=== PATIENT | male | born 1945 | race Caucasian/White ===

== ENCOUNTER 2019-02-10 07:19 | Emergency (ER) | payer MEDICARE, SELFPAY ==
--- NOTE | 2019-02-10 07:29 | DI.RAD.S_ITS ---
PROCEDURE: XR CHEST 2V INDICATIONS: Cant take a deep breath TECHNIQUE: 2 views of the chest were acquired. COMPARISON: None. FINDINGS: Surgical changes and devices: None. Lungs and pleura: Lungs are clear. No pleural effusions or pneumothorax. Mediastinum: Mediastinal contours are normal. Heart size is normal. Bones and chest wall: No suspicious bony abnormalities. Soft tissues appear unremarkable. IMPRESSION: No acute process. Dictated by: Delfina Monsivais M.D. on 02/10/2019 at 8:23 Approved by: Delfina Monsivais M.D. on 02/10/2019 at 8:23
[2019-02-10 07:30] VITALS: BP 147/69; PULSE 62; RESP 20; TEMP 36.9; O2SAT 97; BMI 43.9
--- NOTE | 2019-02-10 07:37 | ED_ITS ---
HPI - SOB/Dyspnea General Chief Complaint: Shortness of Breath/Dyspnea Stated Complaint: Pneumonia episode Time Seen by Provider: 02/10/19 07:35 Source: patient Mode of arrival: ambulatory Limitations: no limitations History of Present Illness Patient is a 73-year-old male here for evaluation of bilateral chest burning. He states that the symptoms woke him up from sleep at approximately 0100 hours in the morning. He states they have been constant symptoms since then however they have improved somewhat. He states it hurts when he takes a big deep breath. Not painful when he touches it or moves. Has not tried anything for the symptoms prior to arrival. Patient states that he had an episode of pneumonia approximately 1 year ago was treated with azithromycin and felt very similar to this. He does have lower extremity swelling but he states this is secondary to his diet. He states that he had a stress test at an outside faci lity recently but does not know the results of it. He has seen a electric truck operator to ?wanted to do another test? he does not know with this was. No fevers. No productive cough. Related Data Allergies Allergy/AdvReac Type Severity Reaction Status Date / Time No Known Drug Allergies Allergy Verified 02/10/19 08:46 Review of Systems Constitutional Denies fever(s) and Denies headache(s) ENT Ears, Nose, Mouth, and Throat: Denies headache(s) Cardiovascular Reports chest pain and Reports leg edema Respiratory Reports pain on inspiration Gastrointestinal Gastrointestinal: Denies abdominal pain, Denies nausea and Denies vomiting Musculoskeletal Denies myalgias and Denies arthralgias Integumentary/Breasts Denies rash Neurologic Denies behavioral changes and Denies headache(s) Psychiatric Denies behavioral changes Hematologic/Lymphatic Denies easy bleeding and Denies easy bruising [facility] Medical History Patient denies medical problems (Acute) Social History Smoking Status: Former smoker Social History Smoking Status: Former smoker Exam Initial Vital Signs Initial Vital Signs: Vital Signs Temperature 98.5 F 02/10/19 07:30 Pulse Rate 62 02/10/19 07:30 Respiratory Rate 20 02/10/19 07:30 Blood Pressure 147/69 H 02/10/19 07:30 Pulse Oximetry 97 02/10/19 07:30 Const General: cooperative, comfortable, well developed, well groomed and No acute distress Chest Chest: normal inspection of the chest, No crepitus and No tenderness Resp Effort & Inspection: normal respiratory effort Auscultation: clear to auscultation bilaterally Cardio Rate: regular rate Rhythm: regular rhythm Pulses: radial pulses present GI Inspection: non-distended Palpation: soft Skin Lesions: no lesions Rashes: no rashes Neuro General: alert, awake and oriented x3 Cognition: normal cognition Speech: speech normal Extrem General: edema Psych Appearance: grossly normal and well kempt Scores GCS Cristi coma scale eye opening: Spontaneous Cristi coma scale verbal response: Orientated [place] coma scale motor response: Obey commands [place] coma scale total score: 15 HEART Score Heart Score history: Slightly Suspicious Heart Score EKG: Non-Specific repolarization disturbance Heart Score Age: > or = 65 years old Heart Score risk factors: No known risk factors Heart Score troponin: < or = to normal limit Heart Score Total: 3 Course Orders Ordered: ED Orders 02/10/19 07:29 CXR [XR chest 2V] Stat EKG-12 Lead Stat 02/10/19 07:50 B Type Natriuretic Peptide Stat Complete Blood Count AUTO DIFF Stat Comprehensive Metabolic Panel Stat Lipase Stat Partial Thromboplastin Time Stat Prothrombin Time INR Stat Troponin I Stat Vital Signs - 8 hr 02/10/19 07:30 Temperature 98.5 F Pulse Rate 62 Respiratory Rate 20 Blood Pressure 147/69 H Pulse Oximetry 97 MDM - SOB/Dyspnea Lab Data Attestation: I reviewed the patient's lab results. Result diagrams: 02/10/19 07:50 02/10/19 07:50 Lab Results 02/10/19 02/10/19 02/10/19 Range/Units 07:50 07:50 07:50 WBC 9.9 (4.5-11.0) X10^3/uL RBC 4.06 L (4.5-5.9) X10^6/uL Hgb 11.2 L (13.5-17.5) g/dL Hct 33.6 L (41-53) % MCV 82.7 (80-100) fL MCH 27.7 (26-34) PG MCHC 33.4 (30-36) % RDW 14.7 (11.6-14.8) % Plt Count 261 (150-400) X10^3/uL Neut % (Auto) 73.8 (50-75) % Lymph % (Auto) 16.6 L (25-40) % [place] % (Auto) 8.1 (3-14) % Eos % (Auto) 0.6 L (2-4) % Baso % (Auto) 0.9 (0-2) % Neut # (Auto) 7300 H (5035-0439) /uL Lymph # (Auto) 1600 (7556-1865) /uL [place] # (Auto) 800 (0-900) /uL Eos # (Auto) 100 (0-450) /uL Baso # (Auto) 100 (0-100) /uL PT 12.1 (10.1-12.7) SECONDS INR 1.1 (0.9-1.3) APTT 53 H (26.4-36.2) SECONDS Sodium 137 (137-145) mmol/L Potassium 4.1 (3.4-5.1) mmol/L Chloride 102 (98-107) mmol/L Carbon Dioxide 25 (22-32) mmol/L BUN 20 (9-20) mg/dL Creatinine 0.90 (0.66-1.25) mg/dL Estimated GFR > 60.0 (>60) mL/min BUN/Creatinine Ratio 22.2 H (6-22) Glucose 131 H (80-110) mg/dL Calcium 9.1 (8.4-10.2) mg/dL Total Bilirubin 0.7 (0.2-1.3) mg/dL AST 18 (17-59) IU/L ALT 12 L (21-72) IU/L Alkaline Phosphatase 90 (38-126) U/L Troponin I < 0.012 (0.01-0.034) ng/mL B-Natriuretic Peptide < 100 (<100) Total Protein 8.1 (6.3-8.2) g/dL Albumin 3.9 (3.5-5.0) g/dL Globulin 4.2 H (1.7-4.1) g/dL Albumin/Globulin Ratio 0.9 L (1.0-2.8) Lipase 68 (23-300) U/L Imaging Data Chest x-ray: Radiologist's impression: [address] [address] XRay Report Signed Patient: Catarino Fisher#: [id number] : 3Acct:[id number] Age/Sex: 73 / MDate of Service: 02/10/19 Loc: ED Accession Number: [id number] Procedure: XR chest 2V Ordering Provider: Hair Fairchild D.O. PROCEDURE: XR CHEST 2V INDICATIONS: Cant take a deep breath TECHNIQUE: 2 views of the chest were acquired. COMPARISON: None. FINDINGS: Surgical changes and devices: None. Lungs and pleura: Lungs are clear. No pleural effusions or pneumothorax. Mediastinum: Mediastinal contours are normal. Heart size is normal. Bones and chest wall: No suspicious bony abnormalities. Soft tissues appear unremarkable. IMPRESSION: No acute process. Dictated by: Delfina Monsivais M.D. on 02/10/2019 at 8:23 Approved by: Delfina Monsivais M.D. on 02/10/2019 at 8:23 ECG Data Attestation: I personally reviewed and interpreted this ECG as follows: Prior ECG tracings: not available for review Interpretation: Sinus bradycardia Ventricular rate of 53 Normal axis Normal QRS Normal QTC [address]-elevation in lead 1 no other reciprocal changes MDM Narrative Medical decision making narrative: Patient troponin is negative greater than 6 hours after the onset of symptoms. EKG is relatively unremarkable. Chest x-ray is unremarkable. He is not hypoxic. Not tachypneic. Not tachycardic. Low suspicion for PE. He does have a uteri all at home. Will have him take his a lbuterol on a regular basis throughout today. Will have him follow up with his electric truck operator. He was given return precautions and follow-up instructions. He expressed understanding and agreement plan. Discharge Plan Departure Patient Disposition: Home Clinical Impression: Atypical chest pain Instructions: DI for Atypical Chest Pain Activity Restrictions/Additional Instructions: I do recommend that you contact your primary care doctor today for follow-up. Also recommend that you contact your electric truck operator. Continue all of your medications as directed. Return to the emergency department for any new or worsening symptoms
[2019-02-10 08:05] LABS: Add Manual Diff / Slide Review NO; Basophils Absolute Auto 100 /uL (0-100); Basophils Percent Auto 0.9 % (0-2); Eosinophils Absolute Auto 100 /uL (0-450); Eosinophils Percent Auto 0.6 % (2-4); Hematocrit 33.6 % (41-53); Hemoglobin 11.2 g/dL (13.5-17.5); Lymphocytes Absolute Auto 1600 /uL (1100-4500); Lymphocytes Percent Auto 16.6 % (25-40); Mean Corpuscular HGB Conc 33.4 % (30-36); Mean Corpuscular Hemoglobin 27.7 PG (26-34); Mean Corpuscular Volume 82.7 fL (80-100); Monocytes Absolute Auto 800 /uL (0-900); Monocytes Percent Auto 8.1 % (3-14); Neutrophils Absolute Auto 7300 /uL (1500-7000); Neutrophils Percent Auto 73.8 % (50-75); Platelet Count 261 X10^3/uL (150-400); Red Blood Cell Count 4.06 X10^6/uL (4.5-5.9); Red Cell Distribution Width 14.7 % (11.6-14.8); White Blood Cell Count 9.9 X10^3/uL (4.5-11.0)
[2019-02-10 08:10] LABS: INR 1.1 (0.9-1.3); Prothrombin Time 12.1 SECONDS (10.1-12.7)
[2019-02-10 08:13] LABS: PTT Partial Thromboplastin Tim 53 SECONDS (26.4-36.2)
[2019-02-10 08:15] LABS: Alanine Aminotransferase 12 IU/L (21-72); Albumin 3.9 g/dL (3.5-5.0); Albumin Globulin Ratio 0.9 (1.0-2.8); Alkaline Phosphatase 90 U/L (38-126); Aspartate Aminotransferase 18 IU/L (17-59); BUN Creatinine Ratio 22.2 (6-22); Bilirubin Total 0.7 mg/dL (0.2-1.3); Blood Urea Nitrogen 20 mg/dL (9-20); Calcium 9.1 mg/dL (8.4-10.2); Carbon Dioxide 25 mmol/L (22-32); Chloride 102 mmol/L (98-107); Estimated Glomerular Filt Rate > 60.0 mL/min (>60); Globulin 4.2 g/dL (1.7-4.1); Glucose 131 mg/dL (80-110); HEMOLYSIS < 15 (0-50); Lipase 68 U/L (23-300); Potassium 4.1 mmol/L (3.4-5.1); Sodium 137 mmol/L (137-145); Total Protein 8.1 g/dL (6.3-8.2)
[2019-02-10 08:27] LABS: Troponin I < 0.012 ng/mL (0.01-0.034)
[2019-02-10 08:35] LABS: B Type Natriuretic Peptide < 100 (<100)
[2019-02-10 09:00] VITALS: BP 131/62; PULSE 54; RESP 16; O2SAT 97
== END 2019-02-10 09:00 | disposition home or self-care (01) ==
PROVIDERS: Emergency Provider Emergency Medicine
DX: R07.89 Other chest pain (principal); R00.1 Bradycardia, unspecified
CPT/HCPCS: 36591; 71046; 80053; 83690; 83880; 84484; 85025; 85610; 85730; 93005; 99282; 99285

== ENCOUNTER 2019-06-30 11:40 | Emergency (ER) | payer MEDICARE, SELFPAY ==
[2019-06-30] VITALS (7 sets, daily range): BP systolic 115–124; BP diastolic 43–78; PULSE 56–118; RESP 16–24; TEMP 36.7; O2SAT 93–100
--- NOTE | 2019-06-30 11:57 | DI.RAD.S_ITS ---
PROCEDURE: XR CHEST 2V INDICATIONS: short of breath, cough TECHNIQUE: 2 views of the chest were acquired. COMPARISON: [facility], CR, XR CHEST 2V, 02/10/2019, 7:55. [facility], CR, XR CHEST 1 VIEW, 10/17/2018, 5:56. FINDINGS: Surgical changes and devices: Sternotomy and CABG. Lungs and pleura: There is moderate left pleural effusion with left basilar consolidation or atelectasis. There is a small right effusion with probable small hiatal normal thorax. No pneumothorax. Mediastinum: Mediastinal contours are normal. Heart size is normal. Bones and chest wall: No suspicious bony abnormalities. Soft tissues appear unremarkable. IMPRESSION: 1. There is a moderate left pleural effusion and small right effusion. There is probable small right hydropneumothorax. There is no evidence for developing tension. The result was discussed with Catie Oneal in ER. Dictated by: Damion Copeland M.D. on 06/30/2019 at 13:09 Approved by: Damion Copeland M.D. on 06/30/2019 at 13:16
--- NOTE | 2019-06-30 12:02 | ED_ITS ---
HPI - SOB/Dyspnea <DAVID Strange - Last Filed: 06/30/19 18:18> General Chief Complaint: Shortness of Breath/Dyspnea Stated Complaint: had a chest xray,was told to go to ER Time Seen by Provider: 06/30/19 11:48 Source: patient Mode of arrival: Ambulatory Limitations: no limitations History of Present Illness HPI Narrative: The patient is a 74-year-old male former smoker who presents with a chief complaint of by Dr. cross at my chest x-ray and told me to go across the street to the emergency department.He states this occurred at the [facility] amount burning, and he was supposed to go to [facility] however he does not like [facility] so he came to this facility. He is not exactly sure why he is here, but states that he went to his doctor's office for a cough that has been going on since March. He has several months postop from a CABG x3 up at [facility]. He currently denies any chest pain. He states he has had a productive cough for months. He states he did have fluid on the lungs after his surgery and needed to have it drained. He denies any fevers, nausea vomiting or diarrhea. He states that his cough has been consistent since March , when he left the hospital. Related Data Home Medications Medication Instructions Recorded Confirmed amiodarone 200 mg PO DAILY 06/30/19 06/30/19 amlodipine 10 mg PO DAILY 06/30/19 06/30/19 aspirin 81 mg PO DAILY 06/30/19 06/30/19 atorvastatin 1 tab PO QPM 06/30/19 06/30/19 furosemide 20 mg PO QPM 06/30/19 06/30/19 metoprolol tartrate 25 mg PO BID 06/30/19 06/30/19 Allergies Allergy/AdvReac Type Severity Reaction Status Date / Time No Known Drug Allergies Allergy Verified 02/10/19 08:46 Review of Systems <DAVID Strange - Last Filed: 06/30/19 18:18> Review of Systems Narrative: GENERAL: Denies chills, fatigue, malaise, fever, sweats. HEENT: Denies sinus pain, ear pain, sore throat, difficulty swallowing, dizziness. RESPIRATORY: See HPI CARDIOVASCULAR: Denies chest pain, palpitations, orthopnea, edema, GASTROINTESTINAL: Denies nausea, vomiting, abdominal pain, diarrhea, constipation, melena. : Denies dysuria, frequency, incontinence, hematuria, urinary retention. MUSCULOSKELETAL: denies weakness, joint pain, or bony pain SKIN: Denies rash, skin lesions, or other NEUROLOGIC: Denies weakness, headache, numbness, change in speech, confusion, seizures, incoordination. PSYCHIATRIC: No concerning psychosocial issues. 12 point review of systems is negative except for those stated above Patient History <DAVID Strange - Last Filed: 06/30/19 18:18> Medical History (Updated 06/30/19 @ 15:36 by DAVID Strange) Former smoker (Acute) Patient denies medical problems (Acute) Surgical History (Updated 06/30/19 @ 12:05 by DAVID Strange) History of coronary artery bypass graft x 3 (Acute) Social History Smoking Status: Former smoker Substance Use Type: does not use Exam <DAVID Strange - Last Filed: 06/30/19 18:18> Narrative Exam Narrative: GENERAL: This is a well-nourished, well-developed patient, in no acute distress HEAD: Atraumatic. Normocephalic. No temporal or scalp tenderness. EYES: Pupils equal round and reactive. Extraocular motions intact. No scleral icterus. No injection or drainage. ENT: Nose without bleeding, purulent drainage or septal hematoma. Throat without erythema, tonsillar hypertrophy or exudate. Uvula midline. Airway patent. NECK: Trachea midline. No JVD or lymphadenopathy. Supple, nontender, no meningeal signs. CARDIOVASCULAR: Regular rate and rhythm without murmurs, gallops, or rubs. RESPIRATORY: Crackles noted left lower lobe. Wet sounding cough on exam. No increased respiratory effort. No accessory muscle use. GASTROINTESTINAL: Abdomen soft, non-tender, nondistended. No hepato- splenomegaly, or palpable masses. No guarding. EXTREMITIES: No clubbing, cyanosis, or edema. No joint tenderness, effusion, or edema noted. BACK: Nontender without deformity or crepitance. No flank tenderness. NEURO: AOx3. SKIN: No rash or erythema on visible skin. CABG scars visible, well approximated and healing well with no signs of infection. Initial Vital Signs Initial Vital Signs: Vital Signs Pulse Rate 58 L 06/30/19 11:57 Respiratory Rate 23 06/30/19 11:57 Blood Pressure 115/54 L 06/30/19 11:57 Pulse Oximetry 94 06/30/19 11:57 <Omid Barragan MD - Last Filed: 06/30/19 18:28> Initial Vital Signs Initial Vital Signs: Vital Signs Pulse Rate 58 L 06/30/19 11:57 Respiratory Rate 23 06/30/19 11:57 Blood Pressure 115/54 L 06/30/19 11:57 Pulse Oximetry 94 06/30/19 11:57 Course <DAVID Strange - Last Filed: 06/30/19 18:18> Orders Ordered: ED Orders 06/30/19 11:57 Consult to Respiratory Therapy Evaluate & Treat XR chest 2V Stat EKG-12 Lead Stat 06/30/19 12:47 B Type Natriuretic Peptide Stat Complete Blood Count AUTO DIFF Stat Comprehensive Metabolic Panel Stat Lactate (Lactic Acid) Stat Magnesium Stat Partial Thromboplastin Time Stat Procalcitonin Stat Prothrombin Time INR Stat Troponin & CK Cardiac Panel Stat 06/30/19 13:32 CT angio chest PE protocol Stat Discontinued Medications Albuterol/Ipratropium (Duoneb) 3 ml INH NOW ONE Stop: 06/30/19 11:58 Last Admin: 06/30/19 13:11 Dose: 3 ml Documented by: KALANI Reevaluation(s) Reevaluation #1: I received records from the [facility], illustrating an x-ray that shows ?essentially stable mild to moderate left pleural effusion and left basilar consolidation/atelectasis with decreased lung volume. No new pulmonary consolidation. No pneumothorax. No right pleural effusion. No cardiomegaly. No acute osseous process. Median sternotomy. Signed by Dr. BAEZ. Chart review illustrate that the patient has been referred to pulmonology at the [facility] in [place]. Time: 13:49 Consultations Consultation #1: I spoke with Dr. Copeland, radiologist regarding patient's x-ray results. Will order CT to check for PE after labs are back. Time: 13:10 Consultation #2: I spoke with Dr. Trotter from cardiothoracic surgery up at [facility] reviewed the patient's images after they were pushed to the location. He would like to follow up with the patient in outpatient clinic. Suggested 5 days of increased Lasix dosing. I discussed this the patient and he has no questions or concerns Time: 14:15 Vital Signs Vital signs: Vital Signs - 8 hr 06/30/19 11:57 06/30/19 11:59 06/30/19 13:15 Temperature 98.0 F Pulse Rate 58 L 118 H 56 L Respiratory Rate 23 22 Blood Pressure 124/78 Blood Pressure [Left Arm] 115/54 L Pulse Oximetry 94 95 97 06/30/19 13:30 06/30/19 13:53 06/30/19 13:57 Temperature Pulse Rate 58 L 59 L 58 L Respiratory Rate 23 16 24 Blood Pressure Blood Pressure [Left Arm] 120/43 L 115/54 L 115/54 L Pulse Oximetry 93 100 94 06/30/19 15:39 Temperature Pulse Rate 56 L Respiratory Rate 16 Blood Pressure Blood Pressure [Left Arm] 115/62 Pulse Oximetry 97 <Omid Barragan MD - Last Filed: 06/30/19 18:28> Orders Ordered: ED Orders 06/30/19 11:57 Consult to Respiratory Therapy Evaluate & Treat XR chest 2V Stat EKG-12 Lead Stat 06/30/19 12:47 B Type Natriuretic Peptide Stat Complete Blood Count AUTO DIFF Stat Comprehensive Metabolic Panel Stat Lactate (Lactic Acid) Stat Magnesium Stat Partial Thromboplastin Time Stat Procalcitonin Stat Prothrombin Time INR Stat Troponin & CK Cardiac Panel Stat 06/30/19 13:32 CT angio chest PE protocol Stat Discontinued Medications Albuterol/Ipratropium (Duoneb) 3 ml INH NOW ONE Stop: 06/30/19 11:58 Last Admin: 06/30/19 13:11 Dose: 3 ml Documented by: KALANI Vital Signs Vital signs: Vital Signs - 8 hr 06/30/19 11:57 06/30/19 11:59 06/30/19 13:15 Temperature 98.0 F Pulse Rate 58 L 118 H 56 L Respiratory Rate 23 22 Blood Pressure 124/78 Blood Pressure [Left Arm] 115/54 L Pulse Oximetry 94 95 97 06/30/19 13:30 06/30/19 13:53 06/30/19 13:57 Temperature Pulse Rate 58 L 59 L 58 L Respiratory Rate 23 16 24 Blood Pressure Blood Pressure [Left Arm] 120/43 L 115/54 L 115/54 L Pulse Oximetry 93 100 94 06/30/19 15:39 Temperature Pulse Rate 56 L Respiratory Rate 16 Blood Pressure Blood Pressure [Left Arm] 115/62 Pulse Oximetry 97 MDM - SOB/Dyspnea <DANA StrangeP-BC - Last Filed: 06/30/19 18:18> Lab Data Result diagrams: 06/30/19 12:47 06/30/19 12:47 Labs: Lab Results 06/30/19 06/30/19 06/30/19 Range/Units 12:47 12:47 12:47 WBC 9.8 (4.5-11.0) X10^3/uL RBC 3.92 L (4.5-5.9) X10^6/uL Hgb 10.8 L (13.5-17.5) g/dL Hct 32.5 L (41-53) % MCV 82.9 (80-100) fL MCH 27.5 (26-34) PG MCHC 33.2 (30-36) % RDW 15.9 H (11.6-14.8) % Plt Count 332 (150-400) X10^3/uL Neut % (Auto) 73.2 (50-75) % Lymph % (Auto) 18.0 L (25-40) % Cotton % (Auto) 6.5 (3-14) % Eos % (Auto) 1.4 L (2-4) % Baso % (Auto) 0.9 (0-2) % Neut # (Auto) 7200 H (3008-5836) /uL Lymph # (Auto) 1800 (3512-1000) /uL Cotton # (Auto) 600 (0-900) /uL Eos # (Auto) 100 (0-450) /uL Baso # (Auto) 100 (0-100) /uL PT 29.9 H (10.1-12.7) SECONDS INR 2.6 H (0.9-1.3) APTT 46 H D (26.4-36.2) SECONDS Sodium 139 (137-145) mmol/L Potassium 3.7 (3.4-5.1) mmol/L Chloride 104 (98-107) mmol/L Carbon Dioxide 26 (22-32) mmol/L BUN 30 H (9-20) mg/dL Creatinine 1.20 (0.66-1.25) mg/dL Estimated GFR 58.9 L (>60) mL/min BUN/Creatinine Ratio 25.0 H (6-22) Glucose 123 H (80-110) mg/dL Lactate (0.7-2.1) mmol/L Calcium 8.9 (8.4-10.2) mg/dL Magnesium 1.8 (1.6-2.3) mg/dL Total Bilirubin 0.5 (0.2-1.3) mg/dL AST 24 (17-59) IU/L ALT 17 L (21-72) IU/L Alkaline Phosphatase 101 (38-126) U/L Total Creatine Kinase 60 (55-170) U/L CK-MB (CK-2) TNP CK-MB (CK-2) Rel Index TNP Troponin I < 0.012 (0.01-0.034) ng/mL B-Natriuretic Peptide 226 H (<100) Total Protein 7.6 (6.3-8.2) g/dL Albumin 3.8 (3.5-5.0) g/dL Globulin 3.8 (1.7-4.1) g/dL Albumin/Globulin Ratio 1.0 (1.0-2.8) Procalcitonin (<0.5) ng/mL 06/30/19 06/30/19 Range/Units 12:47 12:47 WBC (4.5-11.0) X10^3/uL RBC (4.5-5.9) X10^6/uL Hgb (13.5-17.5) g/dL Hct (41-53) % MCV (80-100) fL MCH (26-34) PG MCHC (30-36) % RDW (11.6-14.8) % Plt Count (150-400) X10^3/uL Neut % (Auto) (50-75) % Lymph % (Auto) (25-40) % Cotton % (Auto) (3-14) % Eos % (Auto) (2-4) % Baso % (Auto) (0-2) % Neut # (Auto) (6763-8258) /uL Lymph # (Auto) (9368-8618) /uL Cotton # (Auto) (0-900) /uL Eos # (Auto) (0-450) /uL Baso # (Auto) (0-100) /uL PT (10.1-12.7) SECONDS INR (0.9-1.3) APTT (26.4-36.2) SECONDS Sodium (137-145) mmol/L Potassium (3.4-5.1) mmol/L Chloride (98-107) mmol/L Carbon Dioxide (22-32) mmol/L BUN (9-20) mg/dL Creatinine (0.66-1.25) mg/dL Estimated GFR (>60) mL/min BUN/Creatinine Ratio (6-22) Glucose (80-110) mg/dL Lactate 1.4 (0.7-2.1) mmol/L Calcium (8.4-10.2) mg/dL Magnesium (1.6-2.3) mg/dL Total Bilirubin (0.2-1.3) mg/dL AST (17-59) IU/L ALT (21-72) IU/L Alkaline Phosphatase (38-126) U/L Total Creatine Kinase (55-170) U/L CK-MB (CK-2) CK-MB (CK-2) Rel Index Troponin I (0.01-0.034) ng/mL B-Natriuretic Peptide (<100) Total Protein (6.3-8.2) g/dL Albumin (3.5-5.0) g/dL Globulin (1.7-4.1) g/dL Albumin/Globulin Ratio (1.0-2.8) Procalcitonin < 0.05 (<0.5) ng/mL Imaging Data chest cta : Radiologist's impression: Catarino Fisher 74 M [address] [address] [address] Scan Report Signed Patient: Catarino Fisher#: [id number] : 3Acct:[id number] Age/Sex: 74 / MDate of Service: 06/30/19 Loc: ED Accession Number: [id number] Procedure: CT angio chest PE protocol [facility]ing [facility]: CT ANGIO CHEST PE PROTOCOL INDICATIONS: sob, post op TECHNIQUE: After the administration of intravenous contrast, 2 mm thick sections acquired from the pulmonary apices to the posterior costophrenic angles. 3-dimensional maximum intensity projection (MIP) coronal and sagittal reformats were then acquired through the thorax. For radiation dose reduction, the following was used: automated exposure control, adjustment of mA and/or kV according to patient size. COMPARISON: None. FINDINGS: Image quality: Excellent. Pulmonary arteries: Pulmonary arteries are normal in size, and demonstrate no intraluminal filling defects to suggest central pulmonary embolism. Lungs and pleura: Consolidation noted in the left lung base which could represent compressive atelectasis versus less likely aspiration or pneumonia. Atelectasis noted in the dependent portion of the right lung base. Large loculated left-sided pleural effusion. No pneumothorax. Central and peripheral airways are patent. Mediastinum: Heart mildly enlarged without pericardial effusion. Postsurgical changes compatible with CABG procedure noted. Atherosclerotic calcifications are noted in the aorta, great vessels and the coronary vasculature. No mediastinal or hilar adenopathy. Thoracic aorta is normal in caliber and enhancement. Esophagus is normal in caliber, without hiatal hernia. Bones and chest wall: No suspicious bony lesions. Ribs and thoracic spine appear intact throughout. Spine degenerative disc disease and facet arthropathy. Thyroid gland is normal in visualized. No axillary or supraclavicular adenopathy. Bilateral interior design professional ecomastia. Abdomen: Gallstones noted visualized gallbladder. Partially visualized nonobstructing left renal stone. IMPRESSION: 1. No pulmonary embolus. 2. Large loculated left-sided pleural effusion. Trace right sided pleural effusion. 3. Left basilar consolidation compatible with compressive atelectasis versus aspiration or pneumonia. 4. Status post CABG procedure 5. Cholelithiasis. 6. Partially visualized nonobstructing left renal stone. 7. Bilateral gynecomastia. Dictated by: Jennifer Henriquez MD, PhD on 06/30/2019 at 13:51 Approved by: Jennifer Henriquez MD, PhD on 06/30/2019 at 14:00 Chest x-ray: Radiologist's impression: Catarino Fisher 74 M [address] [address] XRay Report Signed Patient: Catarino FisherKarenR#: [id number] : 1945cct:[id number] Age/Sex: 74 / MDate of Service: 06/30/19 Loc: ED Accession Number: [id number] Procedure: XR chest 2V Ordering Provider: Catie Oneal [employer] PROCEDURE: XR CHEST 2V INDICATIONS: short of breath, cough TECHNIQUE: 2 views of the chest were acquired. COMPARISON: [facility], CR, XR CHEST 2V, 02/10/2019, 7:55. [facility], CR, XR CHEST 1 VIEW, 10/17/2018, 5:56. FINDINGS: Surgical changes and devices: Sternotomy and CABG. Lungs and pleura: There is moderate left pleural effusion with left basilar con solidation or atelectasis. There is a small right effusion with probable small hiatal normal thorax. No pneumothorax. Mediastinum: Mediastinal contours are normal. Heart size is normal. Bones and chest wall: No suspicious bony abnormalities. Soft tissues appear unremarkable. IMPRESSION: 1. There is a moderate left pleural effusion and small right effusion. There is probable small right hydropneumothorax. There is no evidence for developing tension. The result was discussed with Catie Oneal in ER. Dictated by: Damion Copeland M.D. on 06/30/2019 at 13:09 Approved by: Damion Copeland M.D. on 06/30/2019 at 13:16 ECG Data Attestation: I personally reviewed and interpreted this ECG as follows: Interpretation: Sinus bradycardia. Ventricular rate 53. No ST elevation or depression noted. P.r. interval 197. QRS duration 94 MDM Narrative Medical decision making narrative: The patient is a 74-year-old male who presents with a chief complaint of ?my doctor sent me in because of my chest x- ray.The patient does have a significant history including coronary artery bypass graft x3 in March at an outside facility. The patient had crackles on exam, I obtained a chest x-ray. This was concerning for a possible hydropneumothorax, as well as a left-sided pleural effusion. The patient states that he had a left-sided pleural effusion after his CT surgery and needed a thoracentesis. Given that the patient did have recent surgery and was immobilized, I did obtain a CTA to evaluate for possible pulmonary embolism. This came back negative for a PE, as well as no high drove pneumothorax. It is still concerning for subsequent left-sided pleural effusion. The patient is still anticoagulated with an elevated INR of 2.6. He has a negative troponin. His CT was concerning for possible consolidation of his left lower, but this could represent atelectasis. He has no leukocytosis and a negative procalcitonin and has been treated with antibiotics in the past, so I do not believe that he has a pneumonia. I spoke with cardiothoracic surgery from [facility], who viewed his films and encouraged 5 days of increased Lasix dosing as well as follow-up with them. I discussed this at length the patient offered him an increased prescription of Lasix, but he states he would rather take when he already has. I discussed at length coming back to the emergency department for any acute concerns such as chest pain, significant shortness of breath etc. Encouraged follow-up with his CT surgery which he states understanding of. I also encouraged the patient to follow through with his pulmonology referral and follow up with his primary care provider. Patient has no questions or concerns upon discharge and states understanding of return precautions as well as follow-up care. He has been hemodynamically stable and well oxygenating throughout his stay in the emergency department. <Omid Barragan MD - Last Filed: 06/30/19 18:28> Lab Data Labs: Lab Results 06/30/19 06/30/19 06/30/19 Range/Units 12:47 12:47 12:47 WBC 9.8 (4.5-11.0) X10^3/uL RBC 3.92 L (4.5-5.9) X10^6/uL Hgb 10.8 L (13.5-17.5) g/dL Hct 32.5 L (41-53) % MCV 82.9 (80-100) fL MCH 27.5 (26-34) PG MCHC 33.2 (30-36) % RDW 15.9 H (11.6-14.8) % Plt Count 332 (150-400) X10^3/uL Neut % (Auto) 73.2 (50-75) % Lymph % (Auto) 18.0 L (25-40) % Cotton % (Auto) 6.5 (3-14) % Eos % (Auto) 1.4 L (2-4) % Baso % (Auto) 0.9 (0-2) % Neut # (Auto) 7200 H (4374-1740) /uL Lymph # (Auto) 1800 (9470-9480) /uL Cotton # (Auto) 600 (0-900) /uL Eos # (Auto) 100 (0-450) /uL Baso # (Auto) 100 (0-100) /uL PT 29.9 H (10.1-12.7) SECONDS INR 2.6 H (0.9-1.3) APTT 46 H D (26.4-36.2) SECONDS Sodium 139 (137-145) mmol/L Potassium 3.7 (3.4-5.1) mmol/L Chloride 104 (98-107) mmol/L Carbon Dioxide 26 (22-32) mmol/L BUN 30 H (9-20) mg/dL Creatinine 1.20 (0.66-1.25) mg/dL Estimated GFR 58.9 L (>60) mL/min BUN/Creatinine Ratio 25.0 H (6-22) Glucose 123 H (80-110) mg/dL Lactate (0.7-2.1) mmol/L Calcium 8.9 (8.4-10.2) mg/dL Magnesium 1.8 (1.6-2.3) mg/dL Total Bilirubin 0.5 (0.2-1.3) mg/dL AST 24 (17-59) IU/L ALT 17 L (21-72) IU/L Alkaline Phosphatase 101 (38-126) U/L Total Creatine Kinase 60 (55-170) U/L CK-MB (CK-2) TNP CK-MB (CK-2) Rel Index TNP Troponin I < 0.012 (0.01-0.034) ng/mL B-Natriuretic Peptide 226 H (<100) Total Protein 7.6 (6.3-8.2) g/dL Albumin 3.8 (3.5-5.0) g/dL Globulin 3.8 (1.7-4.1) g/dL Albumin/Globulin Ratio 1.0 (1.0-2.8) Procalcitonin (<0.5) ng/mL 06/30/19 06/30/19 Range/Units 12:47 12:47 WBC (4.5-11.0) X10^3/uL RBC (4.5-5.9) X10^6/uL Hgb (13.5-17.5) g/dL Hct (41-53) % MCV (80-100) fL MCH (26-34) PG MCHC (30-36) % RDW (11.6-14.8) % Plt Count (150-400) X10^3/uL Neut % (Auto) (50-75) % Lymph % (Auto) (25-40) % Cotton % (Auto) (3-14) % Eos % (Auto) (2-4) % Baso % (Auto) (0-2) % Neut # (Auto) (7219-1381) /uL Lymph # (Auto) (6558-5764) /uL Cotton # (Auto) (0-900) /uL Eos # (Auto) (0-450) /uL Baso # (Auto) (0-100) /uL PT (10.1-12.7) SECONDS INR (0.9-1.3) APTT (26.4-36.2) SECONDS Sodium (137-145) mmol/L Potassium (3.4-5.1) mmol/L Chloride (98-107) mmol/L Carbon Dioxide (22-32) mmol/L BUN (9-20) mg/dL Creatinine (0.66-1.25) mg/dL Estimated GFR (>60) mL/min BUN/Creatinine Ratio (6-22) Glucose (80-110) mg/dL Lactate 1.4 (0.7-2.1) mmol/L Calcium (8.4-10.2) mg/dL Magnesium (1.6-2.3) mg/dL Total Bilirubin (0.2-1.3) mg/dL AST (17-59) IU/L ALT (21-72) IU/L Alkaline Phosphatase (38-126) U/L Total Creatine Kinase (55-170) U/L CK-MB (CK-2) CK-MB (CK-2) Rel Index Troponin I (0.01-0.034) ng/mL B-Natriuretic Peptide (<100) Total Protein (6.3-8.2) g/dL Albumin (3.5-5.0) g/dL Globulin (1.7-4.1) g/dL Albumin/Globulin Ratio (1.0-2.8) Procalcitonin < 0.05 (<0.5) ng/mL Discharge Plan Departure Patient Disposition: Home Clinical Impression: Shortness of Breath, Pleural effusion Discharge Date/Time: 06/30/19 16:05 Instructions: Pleural Effusion, DI for Shortness of Breath, How to Manage Shortness of Breath, DI for Pleural Effusion Activity Restrictions/Additional Instructions: Today we did imaging of your lungs as well as lab work. We sent the images up to [facility]. I spoke with the cardiothoracic surgeon, who viewed your images. We would like to to take 40 mg of furosemide per day for the next 5 days. This is double your normal dose. We will see if this decreases your pleural effusion. Cardiothoracic surgery would like to see you in clinic. Please call them to schedule this appointment. I also suggest following up with primary care provider as well as the electric switch tester your referred to. Please come back to the emergency department for any acute concerns. Prescriptions: No Action amiodarone 200 mg tablet 200 mg PO DAILY RF: 0 amlodipine 10 mg tablet 10 mg PO DAILY RF: 0 furosemide 20 mg tablet 20 mg PO QPM RF: 0 metoprolol tartrate 25 mg tablet 25 mg PO BID RF: 0 aspirin 81 mg Tablet,Delayed Release (Dr/Ec) 81 mg PO DAILY RF: 0 atorvastatin 1 tab PO QPM RF: 0 Referrals: [facility] ([facility]) [Outside]
--- NOTE | 2019-06-30 12:20 | PC.NURSE ---
Pt arrived POV. reports he was at the [facility] and received a CXR for persistant cough since his bypass surgery in March and was advised to come to ED. AAOx3, Lungs coarse, intermittent persistant cough, HR 65 and normal, scar midline and well healed. reports he has been taking his warfarin but he has been running low with his results, with last result 1.9 (per patient).
[2019-06-30 13:00] LABS: Add Manual Diff / Slide Review NO; Basophils Absolute Auto 100 /uL (0-100); Basophils Percent Auto 0.9 % (0-2); Eosinophils Absolute Auto 100 /uL (0-450); Eosinophils Percent Auto 1.4 % (2-4); Hematocrit 32.5 % (41-53); Hemoglobin 10.8 g/dL (13.5-17.5); Lymphocytes Absolute Auto 1800 /uL (1100-4500); Mean Corpuscular HGB Conc 33.2 % (30-36); Mean Corpuscular Hemoglobin 27.5 PG (26-34); Mean Corpuscular Volume 82.9 fL (80-100); Monocytes Absolute Auto 600 /uL (0-900); Monocytes Percent Auto 6.5 % (3-14); Neutrophils Absolute Auto 7200 /uL (1500-7000); Neutrophils Percent Auto 73.2 % (50-75); Platelet Count 332 X10^3/uL (150-400); Red Blood Cell Count 3.92 X10^6/uL (4.5-5.9); Red Cell Distribution Width 15.9 % (11.6-14.8); White Blood Cell Count 9.8 X10^3/uL (4.5-11.0)
[2019-06-30 13:03] LABS: INR 2.6 (0.9-1.3); Prothrombin Time 29.9 SECONDS (10.1-12.7)
[2019-06-30 13:05] LABS: PTT Partial Thromboplastin Tim 46 SECONDS (26.4-36.2)
[2019-06-30] MEDS: ALBUTEROL/IPRATROPIUM 3 ML AMPUL INH (13:11)
[2019-06-30 13:21] LABS: Alanine Aminotransferase 17 IU/L (21-72); Albumin 3.8 g/dL (3.5-5.0); Alkaline Phosphatase 101 U/L (38-126); Aspartate Aminotransferase 24 IU/L (17-59); Bilirubin Total 0.5 mg/dL (0.2-1.3); Blood Urea Nitrogen 30 mg/dL (9-20); Calcium 8.9 mg/dL (8.4-10.2); Carbon Dioxide 26 mmol/L (22-32); Chloride 104 mmol/L (98-107); Creatine Kinase 60 U/L (55-170); Estimated Glomerular Filt Rate 58.9 mL/min (>60); Globulin 3.8 g/dL (1.7-4.1); Glucose 123 mg/dL (80-110); HEMOLYSIS < 15 (0-50); Lactate (Lactic Acid) 1.4 mmol/L (0.7-2.1); Magnesium 1.8 mg/dL (1.6-2.3); Potassium 3.7 mmol/L (3.4-5.1); Sodium 139 mmol/L (137-145); Total Protein 7.6 g/dL (6.3-8.2)
--- NOTE | 2019-06-30 13:32 | DI.CT.S_ITS ---
PROCEDURE: CT ANGIO CHEST PE PROTOCOL INDICATIONS: sob, post op TECHNIQUE: After the administration of intravenous contrast, 2 mm thick sections acquired from the pulmonary apices to the posterior costophrenic angles. 3-dimensional maximum intensity projection (MIP) coronal and sagittal reformats were then acquired through the thorax. For radiation dose reduction, the following was used: automated exposure control, adjustment of mA and/or kV according to patient size. COMPARISON: None. FINDINGS: Image quality: Excellent. Pulmonary arteries: Pulmonary arteries are normal in size, and demonstrate no intraluminal filling defects to suggest central pulmonary embolism. Lungs and pleura: Consolidation noted in the left lung base which could represent compressive atelectasis versus less likely aspiration or pneumonia. Atelectasis noted in the dependent portion of the right lung base. Large loculated left-sided pleural effusion. No pneumothorax. Central and peripheral airways are patent. Mediastinum: Heart mildly enlarged without pericardial effusion. Postsurgical changes compatible with CABG procedure noted. Atherosclerotic calcifications are noted in the aorta, great vessels and the coronary vasculature. No mediastinal or hilar adenopathy. Thoracic aorta is normal in caliber and enhancement. Esophagus is normal in caliber, without hiatal hernia. Bones and chest wall: No suspicious bony lesions. Ribs and thoracic spine appear intact throughout. Spine degenerative disc disease and facet arthropathy. Thyroid gland is normal in visualized. No axillary or supraclavicular adenopathy. Bilateral gynecomastia. Abdomen: Gallstones noted visualized gallbladder. Partially visualized nonobstructing left renal stone. IMPRESSION: 1. No pulmonary embolus. 2. Large loculated left-sided pleural effusion. Trace right sided pleural effusion. 3. Left basilar consolidation compatible with compressive atelectasis versus aspiration or pneumonia. 4. Status post CABG procedure 5. Cholelithiasis. 6. Partially visualized nonobstructing left renal stone. 7. Bilateral gynecomastia. Dictated by: Jennifer Henriquez MD, PhD on 06/30/2019 at 13:51 Approved by: Jennifer Henriquez MD, PhD on 06/30/2019 at 14:00
[2019-06-30 13:33] LABS: Troponin I < 0.012 ng/mL (0.01-0.034)
[2019-06-30 13:38] LABS: B Type Natriuretic Peptide 226 (<100)
[2019-06-30 13:52] LABS: Procalcitonin < 0.05 ng/mL (<0.5)
== END 2019-06-30 16:05 | disposition home or self-care (01) ==
PROVIDERS: Emergency Provider Nurse Practitioner Family
DX: R06.02 Shortness of breath (principal); J90 Pleural effusion, not elsewhere classified; R05 Cough; R00.1 Bradycardia, unspecified; R79.89 Other specified abnormal findings of blood chemistry
CPT/HCPCS: 36415; 71046; 71275; 80053; 82550; 83605; 83735; 83880; 84145; 84484; 85025; 85610; 85730; 93005; 94640; 99283; 99285; Q9967

== ENCOUNTER 2021-04-08 17:49 | Emergency (ER) | payer MEDICARE, SELFPAY ==
[2021-04-08 17:52] VITALS: BP 149/67; PULSE 64; RESP 22; TEMP 36.4; O2SAT 96
--- NOTE | 2021-04-08 17:56 | DI.RAD.S_ITS ---
PROCEDURE: XR CHEST 2V INDICATIONS: congestion TECHNIQUE: 2 views of the chest were acquired. COMPARISON: [facility], CT, CT ANGIO CHEST PE PROTOCOL, 06/30/2019, 13:33. [facility], CR, XR CHEST 2V, 06/30/2019, 12:02. FINDINGS: Surgical changes and devices: Post median sternotomy and CABG. Aortic valve replacement. Lungs and pleura: No consolidation. Minimal streaky opacity at the left lung base. Prominent interstitial markings. Suspect blunting of the left costophrenic angle. Mediastinum: Mediastinal contours are unchanged. Heart size is prominent. Bones and chest wall: No suspicious bony abnormalities. Soft tissues appear unremarkable. IMPRESSION: Suspect pulmonary vasculature engorgement. Question trace left pleural effusion. Dictated by: Nitin Ag M.D. on 04/08/2021 at 18:15 Approved by: Nitin Ag M.D. on 04/08/2021 at 18:18
== END 2021-04-08 21:14 | disposition left against medical advice (07) ==
PROVIDERS: Emergency Provider Emergency Medicine; PCP Internal Medicine
DX: R09.89 Other specified symptoms and signs involving the circulatory and respiratory systems (principal)
CPT/HCPCS: 71046; 99281

== ENCOUNTER 2022-05-14 09:24 | Emergency (ER) | payer MEDICARE, SELFPAY ==
[2022-05-14 09:33] VITALS: BP 164/67; PULSE 67; RESP 18; TEMP 36.3; O2SAT 93; BMI 44.8
[2022-05-14 10:10] LABS: Bacteria Urine None Seen; Culture Indicated Urine Cult Not Indicated; RBC Urine 30-100/HPF (0-5/HPF); Squamous Epithelial Cell Urine None Seen (0-5/HPF); WBC Urine None Seen (0-5/HPF)
--- NOTE | 2022-05-14 10:52 | ED.MALEGU ---
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 He said that he did have blood in his urine last night. Seems to have cleared this morning although the microscopic does show small blood. He has absolutely no pain. He has no fevers or chills. He has no nausea or vomiting. He has previously had kidney stones he says this is certainly not a kidney stone. He is not urinating gross blood. Overall he has absolutely no symptoms Related Data Home Medications Medication Instructions Recorded Confirmed amiodarone 200 mg tablet 200 mg PO DAILY 06/30/19 06/30/19 amlodipine 10 mg tablet 10 mg PO DAILY 06/30/19 06/30/19 aspirin 81 mg tablet,delayed 81 mg PO DAILY 06/30/19 06/30/19 release atorvastatin 1 tab PO QPM 06/30/19 06/30/19 furosemide 20 mg tablet 20 mg PO QPM 06/30/19 06/30/19 metoprolol tartrate 25 mg tablet 25 mg PO BID 06/30/19 06/30/19 Allergies Allergy/AdvReac Type Severity Reaction Status Date / Time No Known Drug Allergies Allergy Verified 05/14/22 09:38 Review of Systems Review of Systems Narrative: GENERAL: Denies chills,fever HEENT: Denies throat pain RESPIRATORY: Denies dyspnea, cough, wheezing CARDIOVASCULAR: Denies chest pain, palpitations GASTROINTESTINAL: Denies nausea, vomiting : See HPI MUSCULOSKELETAL: Denies extremity pain, injury SKIN: No rash, no laceration, no pruritus NEUROLOGIC: Denies weakness, dizziness, headache, numbness 8 point review of systems is negative except for those stated above and HPI Patient History Medical History Former smoker Patient denies medical problems Surgical History History of coronary artery bypass graft x 3 Social History Smoking Status: Former smoker Smoking Status: Former smoker tobacco type: cigarettes alcohol intake frequency: other Substance Use Type: does not use Exam Initial Vital Signs Initial Vital Signs: Vital Signs Temperature 97.4 F L 05/14/22 09:33 Pulse Rate 67 05/14/22 09:33 Respiratory Rate 18 05/14/22 09:33 Blood Pressure 164/67 H 05/14/22 09:33 Pulse Oximetry 93 05/14/22 09:33 Oxygen Delivery Method 05/14/22 09:33 GENERAL: Alert pleasant 76-year-old male CARDIOVASCULAR: peripheral pulses in tact, cap refill <2 sec RESPIRATORY: No respiratory distress, speaks in full sentences without difficulty ABDOMEN: Soft, nontender, no guarding or rebound EXTREMITIES: Normal range of motion, no clubbing or edema. Neurovascularly intact NEUROLOGICAL: Cranial nerves II through XII grossly intact. Normal gait and speech. SKIN: Warm, dry, no petechiae, no rashes or lesions. Course Orders Ordered: ED Orders 05/14/22 09:34 Urine Culture Stat Urine Microscopic Stat Vital Signs Vital signs: Vital Signs - 8 hr 05/14/22 09:33 Temperature 97.4 F L Pulse Rate 67 Respiratory Rate 18 Blood Pressure 164/67 H Pulse Oximetry 93 Oxygen Delivery Method Room Air MDM - Male Genitourinary Lab Data Labs: Lab Results 05/14/22 Range/Units 09:34 Urine RBC 30-100/hpf H (0-5/HPF) Urine WBC None seen (0-5/HPF) Ur Squamous Epith Cells None seen (0-5/HPF) Urine Bacteria None seen (None) Ur Culture Indicated? Cult not indicated Urine Dip Bedside Urine Glucose Negative Bedside Urine Bilirubin - Negative Bedside Urine Ketone - Negative Urine Specific [place] 1.025 Bedside Urine Occult Blood +++ Bedside Urine pH 6.0 Bedside Urine Urobilinogen - Negative Bedside Urine Nitrite - Negative Bedside Urine Leukocytes - Negative Esterase MDM Narrative Medical decision making narrative: Patient does have hematuria. He is completely asymptomatic this is likely from his a relative. He and I discussed warning signs and when to return to the ED. There does not appear to be infection. He has no pain unlikely to be kidney stone. At this time recommend outpatient follow-up. Discharge Plan Departure Patient Disposition: Home Clinical Impression: Hematuria Instructions: DI for Hematuria Activity Restrictions/Additional Instructions: *You have been diagnosed with hematuria *What to do: At this time drink her normal things. Monitor your urine. If your urine turns grossly bloody like you have recently cut herself please come to the emergency department. If you are unable to urinate also please come to the emergency department *Continue to take medications as directed *Follow up with your primary care provider in 2-3 days or call [phone] *Return to ER if you should have the above symptoms or any new, worsening or concerning symptoms Prescriptions: No Action amiodarone 200 mg tablet 200 mg PO DAILY Label Comments: TAKE 1 TABLET BY MOUTH ONCE DAILY DOSE DECREASE amlodipine 10 mg tablet 10 mg PO DAILY Label Comments: TAKE 1 TABLET BY MOUTH ONCE DAILY furosemide 20 mg tablet 20 mg PO QPM Label Comments: TAKE 1 TABLET BY MOUTH ONCE DAILY metoprolol tartrate 25 mg tablet 25 mg PO BID Label Comments: TAKE 1 TABLET BY MOUTH TWICE DAILY aspirin 81 mg Tablet,Delayed Release (Dr/Ec) 81 mg PO DAILY atorvastatin 1 tab PO QPM Label Comments: [facility] does not have statin on file. 06/30/19 [place] no statin on file either. Referrals: Kay Dye MD [Primary Care Provider] - Visit Report Forms: Patient Portal/API
== END 2022-05-14 11:21 | disposition home or self-care (01) ==
PROVIDERS: Emergency Provider Emergency Medicine; PCP Internal Medicine
DX: R31.9 Hematuria, unspecified (principal)
CPT/HCPCS: 81003; 81015; 87086; 99282